=== PATIENT | female | born 1990 | race Caucasian/White ===

== ENCOUNTER 2017-05-09 22:00 | Emergency (ER) | payer SELFPAY ==
[~2017-05-09] VITALS: Ht 165.1 cm; Wt 61.6 kg
[~2017-05-09 22:00] MED LIST: NOHOMEMEDS; PERCOCET 10-321 EACH; ~No Medications
[2017-05-09 22:25] VITALS: BP 125/76
== END 2017-05-09 23:58 | disposition left against medical advice (07) ==
LOC: EME 22:00
DX: M25.561 Pain in right knee (principal); Z53.21 Procedure and treatment not carried out due to patient leaving prior to being seen by health care provider